=== PATIENT | male | born 1955 | race Caucasian/White ===

== ENCOUNTER 2020-12-30 00:49 | Inpatient (IN) | payer OTHER ==
[~2020-12-30] VITALS: Ht 172.7 cm; Wt 90.7 kg
--- NOTE | 2020-12-30 00:58 | NUR ---
Pt bib triage nurse nico for SOB r/o copd exacerbation to room ED5A via walking, accompanied by son. Pt does not speak [place], Son at bedside to translate. Pt in chair awaiting EDMD eval.
--- NOTE | 2020-12-30 01:10 | NUR ---
EDMD in room interviewing pt.
[2020-12-30] MEDS ORDERED: AMLO10TA59 PO (01:12)
[2020-12-30] MEDS ORDERED: ATOR20TA PO (01:12)
[2020-12-30] MEDS ORDERED: UMEC62.5 IH (01:12)
[2020-12-30] MEDS ORDERED: LISI20TA30 PO (01:12)
[2020-12-30] MEDS ORDERED: ALBU8.5H8 IH (01:12)
--- NOTE | 2020-12-30 01:12 | NUR ---
Called RT for continous breathing treatment for pt per EDMD.
[2020-12-30] MEDS ORDERED: IPRATROPIUM BROMIDE 0.5 MG/2.5 ML NEBU NEB ONE (01:15)
[2020-12-30] MEDS ORDERED: ALBUTEROL SULFATE 2.5 MG/3 ML NEBU NEB ONE (01:15)
--- NOTE | 2020-12-30 01:16 | NUR ---
two way radio technician at bedside to draw pt.
[2020-12-30 01:24] LABS: MEAN CORPUSCULAR HEMOGLOBIN 29.9 uug (23.8-33.4); MEAN CORPUSCULAR VOLUME 86.5 fL (73.0-96.2); PLATELET COUNT (AUTO) 245 K/uL (152-348)
[2020-12-30] MEDS ORDERED: ALBUTEROL SULFATE 2.5 MG/ 0.5 ML NEBU ONE (01:30)
[2020-12-30] MEDS ORDERED: IPRATROPIUM BROMIDE 0.5 MG/2.5 ML NEBU ONE (01:31)
--- NOTE | 2020-12-30 01:36 | NUR ---
Placed pt on gurney and dressed into gown for EKG exam and IV insertion.
--- NOTE | 2020-12-30 01:45 | NUR ---
XRtech at bedside to perform PCXR.
[2020-12-30 01:52] LABS: BILIRUBIN,DIRECT 0.2 mg/dL (0.0-0.2); BILIRUBIN,TOTAL 0.9 mg/dL (0.2-1.0); CREATININE 1.2 mg/dL (0.6-1.3); TOTAL PROTEIN, SERUM 7.2 g/dL (6.4-8.2)
--- NOTE | 2020-12-30 02:35 | NUR ---
pt swabbed for rapid covid test, specimen sent to lab
[2020-12-30] MEDS ORDERED: IOHEXOL 350 100 ML INFUS..BTL ONE (02:58)
[2020-12-30] MEDS ORDERED: SWABABLE VALVE TRANSFER SET EA MC ONE (02:58)
[2020-12-30] MEDS ORDERED: IV NORMAL SALINE 250 ML IV ONE (02:58)
--- NOTE | 2020-12-30 03:02 | NUR ---
XR tech at bedside to transport pt to CT via wc.
--- NOTE | 2020-12-30 03:22 | NUR ---
pt just returned from CT. Reattached to bedside monitor. Saturating at 99% 0n 10L O2. 126/68. 81bpm.18rpm
--- NOTE | 2020-12-30 04:35 | NUR ---
Second EKG performed per EDMD order. Results normal with NSR without ectopy.
[2020-12-30] MEDS ORDERED: NITROGLYCERIN 0.4 MG/TAB BOTTLE SL ONE ×2 (04:45→04:50)
[2020-12-30] MEDS ORDERED: ASPIRIN 81 MG TAB.CHEW PO ONE ×2 (04:45)
[2020-12-30] MEDS ORDERED: ASPIRIN 81 MG TAB.CHEW ONE (04:50)
--- NOTE | 2020-12-30 05:42 | NUR ---
EDMD at pt bedside discussing dispo with pt and pt's son. EDMD recommending admisson into hospital for cardiac observation.
--- NOTE | 2020-12-30 05:43 | NUR ---
[facility] (Dr. Nelson Guajardo) called back and accepted pt for admission into tele floor.
[2020-12-30] MEDS ORDERED: ONDANSETRON 4 MG/2 ML VIAL IV PRN (09:15)
[2020-12-30] MEDS ORDERED: MAGNESIUM HYDROXIDE 30 ML LIQUID UDC PO PRN (09:15)
[2020-12-30] MEDS ORDERED: ACETAMINOPHEN 325 MG TABLET PO PRN (09:15)
[2020-12-30 09:53] LABS: CREATININE 1.2 mg/dL (0.6-1.3)
--- NOTE | 2020-12-30 10:39 | NUR ---
Pt arrived on unit 0642, admitted pt to tele. He came from home due to SOB and woke up wheezing at home. Per daughter stated that he has a cough, productive with yellow sputum. None observed currently. Pt is a/o x 4 (telugu speaking only), daughter at bedside. Currently normal sinus rhythm, vitals 120/63, HR 74, 98% on room air, and temp of 98.1. No complaint of current chest pain or SOB. lungs are clear throughout, no wheezing auscultated. Pt is ambulatory, continent, per pt's daughter he urinates frequently but no known health issues in . Pt has hearing difficulty, has hearing aides at home but does not use it. Pt currently asleep, no signs of acute distress or discomfort. Will continue to monitor.
[2020-12-30] MEDS ORDERED: methylPREDNISolone SOD SUCC 40 MG/ML VIAL IV SCH (11:00)
[2020-12-30] MEDS ORDERED: DOXYCYCLINE HYCLATE 100 MG TABLET PO SCH (11:00)
[2020-12-30 11:59] VITALS: BP 128/65
[2020-12-30] MEDS ORDERED: PRED20TA PO (13:04)
[2020-12-30] MEDS ORDERED: DOXY100C5 PO (13:04)
--- NOTE | 2020-12-30 15:00 | NUR ---
Pt is discharged to home, no complaint of pain or distress at this time. Pt is a/o x 4, daughter still at bedside. Pt is going home with daughter via private car. he is ambulatory, walked himself down to car. All personal belongings at hand. Discharge education and materials given to pt and his daughter. All IV, personal identifying bands, and tele removed prior to pt leaving.
== END 2020-12-30 15:00 | disposition home or self-care (01) | DRG 140 ==
LOC: ER 01:02 → TELE3 06:40
PROVIDERS: ADMIT Nurse Practitioner Family; ATTEND Nurse Practitioner Family
DX: J44.1 Chronic obstructive pulmonary disease with (acute) exacerbation (principal); E78.00 Pure hypercholesterolemia, unspecified; E78.5 Hyperlipidemia, unspecified; Z85.828 Personal history of other malignant neoplasm of skin; I25.10 Atherosclerotic heart disease of native coronary artery without angina pectoris; I10 Essential (primary) hypertension; Z87.11 Personal history of peptic ulcer disease; Z87.891 Personal history of nicotine dependence; R06.83 Snoring; R91.1 Solitary pulmonary nodule; Z82.49 Family history of ischemic heart disease and other diseases of the circulatory system
CPT/HCPCS: 36415; 70030-TC; 71045; 71275; 85025; 93005; 93307; A4663; G0378; J2920; J3590; J7050; Q9967